=== PATIENT | female | born 1960 | race Caucasian/White ===

== ENCOUNTER 2016-09-28 17:44 | Emergency (ER) | payer OTHER ==
[~2016-09-28] VITALS: Ht 167.6 cm; Wt 79.3 kg
[2016-09-28 17:51] VITALS: TEMP 36.6; Ht 167.6 cm; Wt 79.3 kg
[2016-09-28] MEDS ORDERED: MoRPHine SULFATE 10 MG/ML CARP/VIAL IV PRN (18:00)
[2016-09-28] MEDS ORDERED: ONDANSETRON INJ 2 MG/ML 2 ML VIAL IV PRN (18:00)
--- NOTE | 2016-09-28 18:20 | EMERGENCY ROOM VISIT NOTE ---
History Report prepared by Mechelle: Dona Cramer Under the Supervision of: Dr. Ghulam Haro M.D. First contact with patient: 17:54 Chief Complaint: HEADACHE Stated Complaint: HEADACHE THAT WONT GO AWAY LANA History of Present Illness The patient is a 56 year old female who presents to the Emergency Room with complaints of a sudden, persistent headache beginning 6 hours ago. The pain of the headache is rated as a 10/10. The patient describes this as the worst headache she has ever had, and she is unsure of what may have caused it. She denies any trauma to the head. The patient reports that she does not get frequent headaches, and the last one that she can remember was over 1 year ago. The patient experienced nausea and vomiting, and states that she has never previously experienced these symptoms with headaches in the past. The patient states that light worsens her discomfort. She denies any abdominal pain, numbness, or weakness. The patient is a non-insulin dependent diabetic. She denies any history of hypertension, lung problems, or kidney problems. Source of History: patient Onset: 6 hours ago Position: head Symptom Intensity: 10/10 Timing: other (persistent, sudden) Modifying Factors (Worsening): other (light) Associated Symptoms: + nausea, + vomiting, No abdominal pain, No numbness, No weakness Review of Systems All systems have been listed, reviewed, and are negative other than those previously mentioned. Please see Additional Medical History Sheet. Past Medical & Surgical Medical Problems: (1) Diabetes Family History Diabetes mellitus Social History Smoking Status: Current Every Day Smoker Alcohol Use: none Marital Status: single Housing Status: lives with family Occupation Status: employed Current/Historical Medications Scheduled Gemfibrozil (Lopid), 600 MG PO BID Metformin Hcl (Glucophage), 500 MG PO BID Simvastatin (Zocor), 40 MG PO QPM Allergies Uncoded Allergies: PENICILLIN (Allergy, Mild, sick to stomach, 08/22/15) EGGS (Adverse Reaction, Intermediate, GI UPSET, 09/28/16) Physical Exam Vital Signs Date Time Temp Pulse Resp B/P Pulse Ox O2 Delivery O2 Flow Rate FiO2 09/28/16 23:35 104 18 135/98 96 Room Air 09/28/16 23:16 90 19 160/87 97 Room Air 09/28/16 22:19 82 16 170/103 99 Room Air 09/28/16 21:39 85 16 168/103 98 Room Air 09/28/16 19:48 82 16 153/92 99 Room Air 09/28/16 19:11 82 16 151/129 99 Room Air 09/28/16 18:37 99 Room Air 09/28/16 18:37 82 16 177/107 99 Room Air 09/28/16 17:51 36.6 86 18 178/102 99 Room Air Physical Exam GENERAL: Moderate to severe distress. Extremely nauseous. Patient awake, alert, oriented x 3. Patient follows commands. Patient is adequately hydrated and well -nourished. SKIN: No erythema, pallor, cyanosis or rash HEENT: Normal head, pupils equal, reactive to light and accommodation. Oral cavity and posterior pharynx appear normal. Neck: Without adenopathy, no neck vein distention. LUNGS: Clear to auscultation. No wheezes, no rales, no rhonchi. HEART: No murmurs. No gallops. No rubs ABDOMEN: Soft, non-tender. EXTREMITIES: No signs of trauma or infection. NEUROLOGIC: Cranial nerves II-XII within normal limits. No gross motor sensory function deficits. Medical Decision & Procedures ER Provider Diagnostic Interpretation: CT results are interpretations by the radiologist and per my review. CT OF THE HEAD WITHOUT CONTRAST CLINICAL HISTORY: Worst headache of life. COMPARISON STUDY: Head CT August 23, 2015. CT DOSE: 537.48 mGy.cm TECHNIQUE: Helical axial images of the head were obtained without IV contrast. Automated exposure control was utilized for the study. FINDINGS: No acute intracranial hemorrhage, midline shift or mass effect is present. Ventricular system is normal. Basilar cisterns are patent. There are no extra-axial collections. Hassan-white differentiation is maintained. There are no findings to suggest acute dural sinus thrombosis or acute territorial infarct. There is mild mucosal thickening of the ethmoid sinuses. Mastoid air cells are clear. There are no calvarial abnormalities. IMPRESSION: No acute intracranial findings. Electronically signed by: Ivan Gómez M.D. 09/28/2016 6:37 PM Dictated Date/Time: 09/28/2016 6:31 PM Laboratory Results 09/28/16 18:10 Red Blood Count 5.35, Mean Corpuscular Volume 92.0, Mean Corpuscular Hemoglobin 32.7, Mean Corpuscular Hemoglobin Concent 35.6, Mean Platelet Volume 10.2, Neutrophils (%) (Auto) 66.5, Lymphocytes (%) (Auto) 24.8, Monocytes (%) (Auto) 6.8, Eosinophils (%) (Auto) 1.5, Basophils (%) (Auto) 0.2, Neutrophils # (Auto) 8.49, Lymphocytes # (Auto) 3.17, Monocytes # (Auto) 0.87, Eosinophils # (Auto) 0.19, Basophils # (Auto) 0.03 09/28/16 18:10 Test 09/28/16 18:10 09/28/16 21:20 White Blood Count 12.78 K/uL (4.8-10.8) Red Blood Count 5.35 M/uL (4.2-5.4) Hemoglobin 17.5 g/dL (12.0-16.0) Hematocrit 49.2 % (37-47) Mean Corpuscular Volume 92.0 fL (80-100) Mean Corpuscular Hemoglobin 32.7 pg (25-34) Mean Corpuscular Hemoglobin Concent 35.6 g/dl (32-36) Platelet Count 185 K/uL (130-400) Mean Platelet Volume 10.2 fL (7.4-10.4) Neutrophils (%) (Auto) 66.5 % Lymphocytes (%) (Auto) 24.8 % Monocytes (%) (Auto) 6.8 % Eosinophils (%) (Auto) 1.5 % Basophils (%) (Auto) 0.2 % Neutrophils # (Auto) 8.49 K/uL (1.4-6.5) Lymphocytes # (Auto) 3.17 K/uL (1.2-3.4) Monocytes # (Auto) 0.87 K/uL (0.11-0.59) Eosinophils # (Auto) 0.19 K/uL (0-0.5) Basophils # (Auto) 0.03 K/uL (0-0.2) RDW Standard Deviation 43.9 fL (36.4-46.3) RDW Coefficient of Variation 13.1 % (11.5-14.5) Immature Granulocyte % (Auto) 0.2 % Immature Granulocyte # (Auto) 0.03 K/uL (0.00-0.02) Anion Gap 7.0 mmol/L (3-11) Est Creatinine Clear Calc Drug Dose 73.3 ml/min Estimated GFR () 81.7 Estimated GFR (Non- 70.5 BUN/Creatinine Ratio 14.4 (10-20) Calcium Level 9.7 mg/dl (8.5-10.1) Total Bilirubin 0.5 mg/dl (0.2-1) Aspartate Amino Transf (AST/SGOT) 17 U/L (15-37) Alanine Aminotransferase (ALT/SGPT) 21 U/L (12-78) Alkaline Phosphatase 70 U/L (45-117) Total Protein 8.6 gm/dl (6.4-8.2) Albumin 4.6 gm/dl (3.4-5.0) Globulin 4.0 gm/dl (2.5-4.0) Albumin/Globulin Ratio 1.2 (0.9-2) Lyme Disease IgG Antibody NEG (NEG) CSF Color RED CSF Appearance CLOUDY CSF WBC 41 /uL (0-5) CSF RBC 80460 /uL (0) CSF Xanthrochromic N0 CSF Cell Count Tube # 1 CSF Mononuclear WBCs % 39.0 % CSF Polynuclear WBCs (%) 61.0 % CSF Chemistry Tube # 2 CSF Glucose 68 mg/dl (40-70) CSF Total Protein 56.3 mg/dl (15.0-45.0) Laboratory results as stated above per my review. Medications Administered Medications (Trade) Dose Ordered Sig/Angelito Route Start Time Stop Time Status Last Admin Dose Admin Morphine Sulfate (MoRPHine SULFATE INJ) 6 mg PRN PRN IV 09/28/16 18:00 09/29/16 01:27 DC 09/28/16 18:16 6 MG Ondansetron HCl (Zofran Inj) 4 mg Q2H PRN IV 09/28/16 18:00 09/29/16 01:27 DC 09/28/16 18:16 4 MG Labetalol HCl (Normodyne IV) 10 mg NOW STAT IV 09/28/16 23:14 09/28/16 23:15 DC 09/28/16 23:33 5 MG Procedure Lumbar Puncture Indication: rule out subarachnoid bleed/meningitis/encephalitis. Verbal consent was obtained after the risks and benefits were explained. At this time, the risks of the procedure are less than the risks of NOT performing the procedure. The patient was placed in the left lateral decubitus position and the back was prepped with betadine and draped in the standard fashion. The L3 intervertebral space was identified, anesthetized locally with 1% lidocaine without epinephrine, and the spinal needle was inserted through the skin with the bevel parallel to the dural fibers. The needle was carefully advanced into the lumbar cistern but no fluid was obtained. Additional attempts were made but no fluid could be obtained. The procedure was stopped and decision was made to perform the rest of the procedure under fluoroscopic exam. ECG Indication: nausea, vomiting Rate (beats per minute): 91 Rhythm: normal sinus Findings: no acute ischemic change, no ectopy ED Course 1753: Past medical records reviewed. The patient was evaluated in room B6. A complete history and physical examination was performed. 1799: Ordered Zofran Inj 4 mg IV, Morphine Sulfate 6 mg IV. 1909: I reevaluated the patient and she is not doing better. I discussed the exam findings with her and I discussed having a lumbar puncture and she is in agreement with having one. 1921: I attempted to perform the lumbar puncture at this time on the patient. Radiology will be consulted to perform the procedure under fluoroscopy. See procedure note for further detail. 1954: I discussed the patients case with Dr. Gómez, Radiology. He has agreed to perform the lumbar puncture on the patient using fluoroscopy. Medical Decision Nurses notes reviewed. Medical history sheet reviewed. Differential diagnosis includes but is not limited to: subarachnoid hemorrhage, meningitis, encephalitis, migraine, cluster, tension headache, neoplastic disease. Blood Pressure Screening: Patient was found to have an elevated blood pressure after final disposition she will need to follow up with her primary provider. Medication Reconciliation: I attest that I have personally reviewed the patient' s current medication list. The patient is here with the worse headache of her life. It appears to be more left-sided than right. The patient was also noted to have some confusion that began prior to administration of pain medications. The patient has had some headaches before but this seems significantly different according to family members. Patient also exhibited some unusual behavior while here in the ED. She was confused at times. She also has some dysarthria. Patient exhibited no focal findings. The first attempt at the spinal tap was unsuccessful. No fluid was obtained. I then contacted radiology to see if they could perform the procedure under fluoroscopy. The case was signed out to Dr. Sanchez at 2024. Consults Time Called: 1947 Consulting Physician: Dr. Gómez, Radiology Returned Call: 1954 I discussed the patients case with Dr. Gómez, Radiology. He has agreed to perform the lumbar puncture on the patient using fluoroscopy. Impression Primary Impression: Headache Scribe Attestation The scribe's documentation has been prepared under my direction and personally reviewed by me in its entirety. I confirm that the note above accurately reflects all work, treatment, procedures, and medical decision making performed by me. Departure Information Referrals Joselito Anderson MD (PCP) Patient Instructions My [facility] Problem Qualifiers Primary Impression: Headache Intractability: intractable
[2016-09-28 18:21] LABS: BASO % 0.2 %; BASO ABS # 0.03 K/uL (0-0.2); COMPLETE YES; EOS % 1.5 %; HEMATOCRIT 49.2 % (37-47); IG% 0.2 %; LYMPH % 24.8 %; LYMPH ABS # 3.17 K/uL (1.2-3.4); MEAN CORPUSCULAR HEMOGLOBIN 32.7 pg (25-34); MEAN CORPUSCULAR HGB CONC 35.6 g/dl (32-36); MEAN PLATELET VOLUME 10.2 fL (7.4-10.4); MONO % 6.8 %; NEUT % 66.5 %; PLATELET COUNT 185 K/uL (130-400); RED BLOOD COUNT 5.35 M/uL (4.2-5.4); WHITE BLOOD COUNT 12.78 K/uL (4.8-10.8)
[2016-09-28 18:37] VITALS: O2SAT 99
--- NOTE | 2016-09-28 18:38 | DIAGNOSTIC IMAGING REPORT ---
CT OF THE HEAD WITHOUT CONTRAST CLINICAL HISTORY: Worst headache of life. COMPARISON STUDY: Head CT August 23, 2015. CT DOSE: 537.48 mGy.cm TECHNIQUE: Helical axial images of the head were obtained without IV contrast. Automated exposure control was utilized for the study. FINDINGS: No acute intracranial hemorrhage, midline shift or mass effect is present. Ventricular system is normal. Basilar cisterns are patent. There are no extra-axial collections. Hassan-white differentiation is maintained. There are no findings to suggest acute dural sinus thrombosis or acute territorial infarct. There is mild mucosal thickening of the ethmoid sinuses. Mastoid air cells are clear. There are no calvarial abnormalities. IMPRESSION: No acute intracranial findings. Electronically signed by: Ivan Gómez M.D. 09/28/2016 6:37 PM Dictated Date/Time: 09/28/2016 6:31 PM
[2016-09-28 18:40] LABS: BUN/CREATININE RATIO 14.4 (10-20); CALCIUM 9.7 mg/dl (8.5-10.1); CREATININE 0.91 mg/dl (0.60-1.20); POTASSIUM 3.8 mmol/L (3.5-5.1)
[2016-09-28 18:42] LABS: ALB/GLOB RATIO 1.2 (0.9-2)
[2016-09-28] MEDS ORDERED: GLC/500 PO (21:16)
[2016-09-28] MEDS ORDERED: GEMF600T3 PO (21:17)
[2016-09-28] MEDS ORDERED: SIMV40TA2 PO (21:18)
--- NOTE | 2016-09-28 21:26 | EMERGENCY ROOM VISIT NOTE ---
ED Visit Note First contact with patient: 21:19 This patient was signed out to me by Dr. Haro pending lumbar puncture to evaluate for possible meningitis or subarachnoid hemorrhage. I did speak to Dr. Gómez who perform the lumbar puncture. He stated that the CSF was pink tinge throughout collection of the CSF and did not clear. I did evaluate the patient. She states her headache is a 5 out of 10 in severity at this time. She is neurologically intact and generally feels better at this time. I am awaiting CSF results. She will be kept nothing by mouth. The lumbar puncture results show significant CSF RBCs over what would be expected from atraumatic tap. I immediately called neurosurgery. I spoke with Dr. Reyes - [facility] [place] about the patient. He agrees it is a subarachnoid. He recommends patient be transferred to [facility]. I spoke with Dr. Vega - Neurosurgery at [facility]. He will accept the patient for transfer. He would like the patient to go to the ED at [facility]. I did discuss the test results with the patient and her family. Her headache is improving and she remains neurologically intact. Her blood pressure was significantly elevated and I did treat her with labetalol IV. Her blood pressure came down to 135/98. She was transferred via helicopter to [facility]. I have personally spent 34 minutes of critical care time in the direct management of this patient. This includes bedside care, interpretation of diagnostic studies and testing, discussion with consultants and patient, and other required patient management activities. This time is in excess of all separately billable procedures.
[2016-09-28 21:52] LABS: CSF CHEMISTRY TUBE # 2
[2016-09-28 21:54] LABS: CSF TOTAL PROTEIN 56.3 mg/dl (15.0-45.0)
--- NOTE | 2016-09-28 21:57 | DIAGNOSTIC IMAGING REPORT ---
FLUOROSCOPICALLY GUIDED LUMBAR PUNCTURE CLINICAL HISTORY: Headache and nausea. Evaluate for meningitis or subarachnoid bleed. PROCEDURE: The procedure, risks and benefits were discussed with the patient including the risk of spinal headache, bleeding and infection. The patient agreed to the procedure and informed written consent was obtained. The procedure was performed by Dr. Gómez following a timeout. The right L4-L5 interlaminar space was targeted. Skin overlying the space was prepped and draped in sterile fashion and local anesthesia was achieved with 1% lidocaine. Under intermittent fluoroscopic guidance, a 3 and 1/2 inch, 22-gauge spinal needle was directed into the thecal sac with immediate return of cerebrospinal fluid. The CSF was initially blood-tinged and remained blood-tinged throughout the procedure. A total of 8 cc of blood-tinged CSF was collected in 4 vials and sent to laboratory as ordered. The needle was removed. The patient tolerated the procedure well and no immediate complications were evident. IMPRESSION: Fluoroscopically guided lumbar puncture with collection of 8 cc of blood-tinged cerebrospinal fluid which was sent to laboratory as ordered. The fluid remained blood-tinged throughout this procedure raising the possibility of subarachnoid blood. Discussed with Dr. Sanchez at time of dictation. Electronically signed by: Ivan Gómez M.D. 09/28/2016 9:55 PM Dictated Date/Time: 09/28/2016 9:53 PM
[2016-09-28 22:25] LABS: CSF COLOR RED
[2016-09-28 22:28] LABS: CSF APPEARANCE CLOUDY
[2016-09-28 22:32] LABS: CSF XANTHOCHROMIC NO XANTHOCHROMIA
[2016-09-28 22:36] LABS: CSF COLOR RED
[2016-09-28 22:38] LABS: CSF APPEARANCE CLOUDY
[2016-09-28 22:39] LABS: CSF XANTHOCHROMIC N0
[2016-09-28 22:55] LABS: CSF MONONUC RELAT 35.7 %
[2016-09-28] MEDS ORDERED: LABETALOL HCL IV 5 MG/ML 20ML IV STA (23:14)
[2016-09-28] MEDS ORDERED: NURSING VERBAL MED ORDER ONE (23:30)
[2016-09-28 23:35] VITALS: BP 135/98; PULSE 104; O2SAT 96
[2016-09-29] MEDS ORDERED: LABETALOL HCL IV 5 MG/ML 20ML IV STA (01:19)
== END 2016-09-29 | disposition short-term general hospital (02) ==
LOC: C.EDB 17:45
DX: R51 Headache (principal); E11.9 Type 2 diabetes mellitus without complications; Z83.3 Family history of diabetes mellitus; F17.200 Nicotine dependence, unspecified, uncomplicated